=== PATIENT | female | born 1955 | race Caucasian/White ===

== ENCOUNTER 2022-08-04 13:27 | Observation (INO) | payer BC, MEDICARE, SELFPAY ==
[2022-08-04] VITALS (7 sets, daily range): BP systolic 128–185; BP diastolic 78–109; PULSE 77–96; RESP 16–20; TEMP 36.2–36.8; O2SAT 94–100; BMI 21.2
--- NOTE | ~2022-08-04 | MR_ITS ---
EXAMINATION: MR BRAIN WITHOUT CONTRAST CLINICAL INFORMATION: Syncope. COMPARISON: Head CT dated 08/04/2022. TECHNIQUE: Multiplanar, multisequence imaging of the brain was performed without contrast. FINDINGS: No diffusion abnormalities are identified to suggest an acute or subacute infarct. The ventricles are normal in size. No mass effect or midline shift is seen. Mild chronic white matter microangiopathic changes noted. No extra-axial fluid collections are seen. The brainstem and cerebellum are normal. The gradient refocused acquisition is normal. The craniovertebral junction, marrow signal, and midline structures are normal. The major intracranial flow voids at the level of the [place] of [place] are preserved. The dural venous sinus flow voids are maintained. The mastoid air cells are well aerated. There is mild mucosal thickening in the sphenoethmoid sinuses. MR/MR head/brain wo con IMPRESSION: No acute intracranial process. Mild chronic white matter microangiopathy.
--- NOTE | ~2022-08-04 | CT_ITS ---
EXAMINATION: CT HEAD WITHOUT CONTRAST CLINICAL INFORMATION: Feeling unsteady. Leading to the left. COMPARISON: None. TECHNIQUE: Contiguous axial imaging was performed from the skull base to vertex without intravenous administration of contrast. This CT examination was performed using dose optimization techniques as appropriate, variously including the following: *Automated exposure control *Adjustment of mA and/or kV according to patient size (this includes techniques or standardized protocols for targeted exams where dose is matched to indication/reason for exam; i.e. extremities or head) *Use of iterative reconstruction technique DLP: 532 mGy-cm. FINDINGS: There is no intracranial hemorrhage, large infarction, or mass lesion. There is no extra-axial collection. The ventricles are normal in size and configuration without evidence of hydrocephalus. Patchy hypoattenuation is seen within the cerebral white matter, typical of chronic microangiopathy. The visualized paranasal sinuses and mastoid air cells are clear. Dense atheromatous calcifications are seen along the intradural vertebral arteries and at the carotid siphons CT/CT head/brain wo IV con IMPRESSION: No acute intracranial abnormality. Background changes of chronic microangiopathy.
--- NOTE | ~2022-08-04 | XR_ITS ---
EXAMINATION: XR CHEST CLINICAL INFORMATION: Syncope COMPARISON: None available. TECHNIQUE: Frontal view of the chest was obtained. FINDINGS: Bilateral axillary surgical clips. Lungs are clear. No consolidation, pneumothorax, or pleural effusion. Cardiac and mediastinal contours are normal. Pulmonary vascular structures unremarkable. Calcific atherosclerosis is present in the thoracic aorta. No acute osseous findings. Degenerative spondylosis is noted in the thoracic spine. Calcific atherosclerosis is evident in the region of the splenic artery. Mild osteoarthritis is present in the acromioclavicular and glenohumeral joints. XR/XR chest 1V IMPRESSION: No acute pulmonary findings.
--- NOTE | 2022-08-04 13:52 | ECG_ITS ---
Test Reason : syncope Blood Pressure : / mmHG Vent. Rate : 086 BPM Atrial Rate : 086 BPM P-R Int : 160 ms QRS Dur : 076 ms QT Int : 374 ms P-R-T Axes : 063 013 031 degrees QTc Int : 447 ms Normal sinus rhythm Normal ECG No previous ECGs available Referred By: Susie Sears Electronically Signed By:Sean Bailey
--- NOTE | 2022-08-04 13:52 | ED_ITS ---
HPI - Syncope General Chief Complaint: Syncope <DRISS Solis - Last Filed: 08/04/22 13:59> Stated Complaint: Syncope this am <DRISS Solis - Last Filed: 08/04/22 13:59> Time Seen by Provider: 08/04/22 15:02 <DRISS Solis - Last Filed: 08/04/22 13:59> Source: patient <Shannan Brown MD - Last Filed: 08/04/22 16:23> Mode of arrival: ambulatory <Shannan Brown MD - Last Filed: 08/04/22 16:23> History of Present Illness HPI narrative: 67-year-old female who presents with complaints of recent sinus infection that has prompted her to take multiple treatments with [id number] Sudafed containing decongestants and she feels like it has gradually improved, however she states last night she felt unsteady and dizzy with some tiredness and went to bed early. Patient states that her daughter stated that she sounded like she was drunk. Patient states that she woke up this or and felt this hot flushing sensation with significant sweating that she states soaked her pajamas, she felt unsteady on her feet and walked over to the table. At that time, patient states she rested her head backwards, denies falling out of the chair but feels like she may have almost passed out and when she sat upright again felt sweaty and place her head on the table and thereafter felt better. <Shannan Brown MD - Last Filed: 08/04/22 16:23> Related Data Home Medications: Home Medications Medication Instructions Recorded Confirmed atorvastatin 10 mg tablet 10 mg PO DAILY 08/04/22 lifitegrast 5 % eye drops in a 1 drp ophthalmic (eye) BID 08/04/22 dropperette (Xiidra) losartan 100 1 tab PO DAILY 08/04/22 mg-hydrochlorothiazide 25 mg tablet metformin 500 mg tablet 500 mg PO DAILY 08/04/22 <DRISS Solis - Last Filed: 08/04/22 13:59> Allergies/Adverse Reactions: Allergies Allergy/AdvReac Type Severity Reaction Status Date / Time budesonide Allergy Unknown Verified 02/28/19 00:00 ciprofloxacin [Cipro] Allergy Unknown Verified 02/28/19 00:00 desonide Allergy Unknown Verified 02/28/19 00:00 flaxseed Allergy Unknown Verified 02/28/19 00:00 fludrocortisone Allergy Unknown Verified 02/28/19 00:00 halcinonide Allergy Unknown Verified 02/28/19 00:00 hydrocortisone Allergy Unknown Verified 02/28/19 00:00 prednisolone Allergy Unknown Verified 02/28/19 00:00 triamcinolone Allergy Unknown Verified 02/28/19 00:00 wheat [WHEAT] Allergy Unknown ABDOMINAL Unverified 12/28/19 16:25 DISTENTION Benadryl Allergy Unknown Uncoded 02/28/19 00:00 dust mites Allergy Unknown Uncoded 02/28/19 00:00 From BENADRYL Allergy Unknown HIVES Uncoded 12/28/19 16:25 latex Allergy Unknown Uncoded 02/28/19 00:00 mold Allergy Unknown Uncoded 02/28/19 00:00 numerous meds Allergy Unknown Uncoded 02/28/19 00:00 soy Allergy Unknown Uncoded 02/28/19 00:00 <DRISS Solis - Last Filed: 08/04/22 13:59> Review of Systems Review of Systems: Pertinent positives and negatives as stated in HPI <Shannan Brown MD - Last Filed: 08/04/22 16:23> PMFSH Past Medical History Source: nursing notes reviewed <Shannan Brown MD - Last Filed: 08/04/22 16:23> Social History Social History: Social History Advance Directives: No Advance Directives Information Provided: Yes <DRISS Solis - Last Filed: 08/04/22 13:59> Physical Exam Vital Signs: Vital Signs: Last Vital Signs Temp 98.0 F 08/04/22 13:51 Pulse 83 08/04/22 16:05 Resp 17 08/04/22 13:51 BP 156/99 H 08/04/22 16:05 Pulse Ox 96 08/04/22 15:55 O2 Del Method Room Air 08/04/22 15:55 BMI result Body Mass Index 21.2 <DRISS Solis - Last Filed: 08/04/22 13:59> Vital Signs: Last Vital Signs Temp 98.0 F 08/04/22 13:51 Pulse 83 08/04/22 16:05 Resp 17 08/04/22 13:51 BP 156/99 H 08/04/22 16:05 Pulse Ox 96 08/04/22 15:55 O2 Del Method Room Air 08/04/22 15:55 BMI result Body Mass Index 21.2 VITAL SIGNS: Reviewed. GENERAL: Well developed, well nourished, in no acute distress. HEAD: Normocephalic/atraumatic EYES: PERRLA, EOMI intact without pain, no nystagmus/pallor/icterus noted EARS: Ext canals without abnormality, TMs non-bulging and non-erythematous NOSE: Nares patent bilateral OROPHARYNX: no oral lesions noted, posterior pharynx clear and non-erythematous without noted tonsillar enlargement/erythema/exudates NECK: Supple, no adenopathy LUNGS: Normal breath sounds. No adventitious sounds or accessory muscle use. SpO2<98>; CHEST WALL: Patient is noted to have purpuric and tender rash to the anterior chest wall that she states is been evaluated by her support team member. CARDIOVASCULAR: Regular rate and rhythm without noted murmurs, no JVD or lower extremity edema. ABDOMEN: Soft, non-tender, non-distended with bowel sounds. MUSCULOSKELETAL: No tenderness, deformities, or effusions noted on gross inspec tion. EXTREMITIES: No cyanosis, clubbing or edema. SKIN: Inspection of the skin reveals please see above description on anterior chest wall NEUROLOGIC: Alert and oriented x 4. Strength and sensation to light touch were grossly intact x 4, no facial asymmetry, no pronator drift, cranial nerves 2-12 are grossly intact. <Shannan Brown MD - Last Filed: 08/04/22 16:23> Vital Signs: Last Vital Signs Temp 98.0 F 08/04/22 13:51 Pulse 83 08/04/22 16:05 Resp 17 08/04/22 13:51 BP 156/99 H 08/04/22 16:05 Pulse Ox 96 08/04/22 15:55 O2 Del Method Room Air 08/04/22 15:55 BMI result Body Mass Index 21.2 <Ahmet Bernstein MD - Last Filed: 08/04/22 18:15> Course Course Course Narrative: RME: 67yo F c/o feeling unwell yesterday, left work early slept for 4hrs then had syncopal episode this AM around 6:45AM. Denies head trauma. States when called her daughter yesterday sounded drunk on the phone. Admits to feeling shaky/foggy and unsteady on feet. takes ASA 81mg HTNsive 185/109 in triage, admits did take her BP meds this AM EKG, labs, CXR, head CT, CXR, Orthostatics ordered Full HPI, ROS and PE to be performed by primary ED provider. <DRISS Solis - Last Filed: 08/04/22 13:59> Medical Decision Making Medical Decision Making MDM Narrative: 67-year-old female with history and clinical presentation person for most suggestive near-syncope and on review of all investigations in combination with my clinical exam there are no findings to suggest infection, anemia as probable etiologies however there is obvious and significant hyponatremia with a por phyric rash to the anterior chest wall. I reviewed all investigations, additional labs to be evaluated are: ESR, CRP, VBG, serum osmolality as well as urine osmolality. Signed out to Dr Bernstein. <Shannan Brown MD - Last Filed: 08/04/22 16:23> 67-year-old female with history and clinical presentation person for most suggestive near-syncope and on review of all investigations in combination with my clinical exam there are no findings to suggest infection, anemia as probable etiologies however there is obvious and significant hyponatremia with a porphyric rash to the anterior chest wall. I reviewed all investigations, additional labs to be evaluated are: ESR, CRP, VBG, serum osmolality as well as urine osmolality. Signed out to Dr Bernstein. 174: I did assume care of this patient from my colleague, Dr. Shannan Brown. The patient told me that she has had sinus pressure in her maxillary sinuses times several days. She has been taking [id number] medications including Zyrtec, Sudafed maximum strength and Dyslem. The patient states that she has a job where she walks around a lot yesterday she was feeling a little lightheaded at work. Her daughter states she spoke to her yesterday and she sounded conf used. Today, the patient states she walked upper stairs and when she got to the top of the stairs she felt woozy as if she was going to pass out. She felt weak. She states that she became diaphoretic and was drenched in sweat. She sat and her kitchen chair and her 13-year-old grandson was there. The grandson reports that the patient passed out for a couple minutes pain. The patient does not remember this but when she got up from the kitchen tear she again felt lightheaded, woozy and diaphoretic. Patient does have a history of hypertension which is treated with losartan and hydrochlorothiazide, hyperlipidemia, diabetes mellitus, arthritis, eczema, breast cancer. Patient's laboratory revealed a low sodium of 125, she has a low serum osmolality of 298 with a low urine osmolality of 264 and elevated sodium of 41 suggesting that this is probably caused by her diuretics. First high sensitive troponin I was below detectable limits, repeat was ordered for now. Twelve EKG was unremarkable. Chest x-ray was unremarkable pain. CT scan of the brain no acute abnormalities with chronic microangiopathy. Given her diaphoresis with exertion, lightheadedness and syncope, the patient will need to be admitted for further workup. I will discuss the patient's presentation with the covering hospitalist <Ahmet Bernstein MD - Last Filed: 08/04/22 18:15> Differential Diagnosis Please see the discussion above <Shannan Brown MD - Last Filed: 08/04/22 16:23> Consult Healthcare Provider Management of the patient was discussed with: Hospitalist <Ahmet Bernstein MD - Last Filed: 08/04/22 18:15> Lab Data MDM Lab Attestation statement: I reviewed the patient's lab results. <Ahmet Bernstein MD - Last Filed: 08/04/22 18:15> Please see the discussion above <Shannan Brown MD - Last Filed: 08/04/22 16:23> Result Diagrams: 08/04/22 14:17 08/04/22 14:17 <DRISS Solis - Last Filed: 08/04/22 13:59> Labs: Lab Results 08/04/22 08/04/22 08/04/22 Range/Units 14:17 14:17 14:17 WBC 8.0 (4.8-10.8) X10*3/uL RBC 4.47 (4.20-5.50) X10*6/uL Hgb 14.1 (12.0-16.0) g/dl Hct 38.8 (37.0-47.0) % MCV 86.8 (80.0-98.0) fL MCH 31.5 (27.0-33.0) pg MCHC 36.3 H (31.0-35.0) g/dl RDW 11.7 (11.0-16.0) % Plt Count 314 (160-400) X10*3/uL MPV 8.8 L (9.4-12.3) fL Immature Gran % (Auto) 0.4 (0.0-0.4) % Neut % (Auto) 76.7 H (45-73) % Lymph % (Auto) 16.7 L (20-40) % [place] % (Auto) 5.6 (2-11) % Eos % (Auto) 0.4 (0-4) % Baso % (Auto) 0.2 (0-2) % Lymph # (Auto) 1.3 (1.2-4.9) X10*3/uL [place] # (Auto) 0.5 (0.1-1.2) X10*3/uL Eos # (Auto) 0.0 (0.0-0.4) X10*3/uL Baso # (Auto) 0.0 (0.0-0.2) X10*3/uL Abs Immat Gran (auto) 0.03 (0.00-0.03) X10*3/uL Absolute Neuts (auto) 6.2 (2.0-8.3) x10*3/uL Absolute Nucleated RBC 0.000 (0.0-0.012) X10*3/uL Nucleated RBC % (auto) 0.0 (0.0-0.2) /100WBC PT (10.0-13.1) SEC INR (0.9-1.1) Sodium 125 L (135-145) mmol/L Potassium 3.7 (3.3-5.1) mmol/L Chloride 88 L (96-108) mmol/L Carbon Dioxide 26 (22-29) mmol/L Anion Gap 15 (12-20) BUN 14 (9-16) mg/dL Creatinine 0.71 (0.5-1.4) mg/dL Estim Creat Clear Calc 62.5 Estimated GFR > 60 Random Glucose 100 (60-115) mg/dL Osmolality (281-305) mosm/kg Calcium 9.3 (8.4-10.2) mg/dL Magnesium 1.9 (1.6-2.6) mg/dL Total Bilirubin 0.7 (0.0-1.0) mg/dL Direct Bilirubin 0.2 (0.0-0.5) mg/dL AST 24 (5-31) U/L ALT 20 (0-31) U/L Alkaline Phosphatase 72 (39-117) U/L Troponin I High Sens < 2.7 (<3.5-17.0) ng/L C-Reactive Protein < 0.10 (< or = 0.50) mg/dL Total Protein 7.3 (6.5-8.0) g/dL Albumin 4.6 (3.5-5.0) g/dL Urine Color Urine Appearance Urine pH (5.0-9.0) Ur Specific [place] (1.005-1.025) Urine Protein (Neg-Trace) mg/dL Urine Glucose (UA) (Negative) mg/dL Urine Ketones (Negative) mg/dL Urine Blood (Negative) Urine Nitrite (Negative) Ur Leukocyte Esterase (Negative) Urine RBC (0-2) /HPF Urine WBC (0-5) /HPF Ur Squamous Epith Cells (0-2) /HPF Urine Bacteria (None Seen) Hyaline Casts (0-2) /LPF Urine Osmolality (373-1093) mosm/kg Ur Random Sodium mmol/L COVID-19 (JENNY) (Negative) COVID-19 Clin Com Influenza Type A (EMILY) (Negative) Influenza Type B (EMILY) (Negative) Influenza A & B Note 08/04/22 08/04/22 08/04/22 Range/Units 14:17 14:17 14:17 WBC (4.8-10.8) X10*3/uL RBC (4.20-5.50) X10*6/uL Hgb (12.0-16.0) g/dl Hct (37.0-47.0) % MCV (80.0-98.0) fL MCH (27.0-33.0) pg MCHC (31.0-35.0) g/dl RDW (11.0-16.0) % Plt Count (160-400) X10*3/uL MPV (9.4-12.3) fL Immature Gran % (Auto) (0.0-0.4) % Neut % (Auto) (45-73) % Lymph % (Auto) (20-40) % [place] % (Auto) (2-11) % Eos % (Auto) (0-4) % Baso % (Auto) (0-2) % Lymph # (Auto) (1.2-4.9) X10*3/uL [place] # (Auto) (0.1-1.2) X10*3/uL Eos # (Auto) (0.0-0.4) X10*3/uL Baso # (Auto) (0.0-0.2) X10*3/uL Abs Immat Gran (auto) (0.00-0.03) X10*3/uL Absolute Neuts (auto) (2.0-8.3) x10*3/uL Absolute Nucleated RBC (0.0-0.012) X10*3/uL Nucleated RBC % (auto) (0.0-0.2) /100WBC PT 11.1 (10.0-13.1) SEC INR 1.0 (0.9-1.1) Sodium (135-145) mmol/L Potassium (3.3-5.1) mmol/L Chloride (96-108) mmol/L Carbon Dioxide (22-29) mmol/L Anion Gap (12-20) BUN (9-16) mg/dL Creatinine (0.5-1.4) mg/dL Estim Creat Clear Calc Estimated GFR Random Glucose (60-115) mg/dL Osmolality (281-305) mosm/kg Calcium (8.4-10.2) mg/dL Magnesium (1.6-2.6) mg/dL Total Bilirubin (0.0-1.0) mg/dL Direct Bilirubin (0.0-0.5) mg/dL AST (5-31) U/L ALT (0-31) U/L Alkaline Phosphatase (39-117) U/L Troponin I High Sens (<3.5-17.0) ng/L C-Reactive Protein (< or = 0.50) mg/dL Total Protein (6.5-8.0) g/dL Albumin (3.5-5.0) g/dL Urine Color Urine Appearance Urine pH (5.0-9.0) Ur Specific [place] (1.005-1.025) Urine Protein (Neg-Trace) mg/dL Urine Glucose (UA) (Negative) mg/dL Urine Ketones (Negative) mg/dL Urine Blood (Negative) Urine Nitrite (Negative) Ur Leukocyte Esterase (Negative) Urine RBC (0-2) /HPF Urine WBC (0-5) /HPF Ur Squamous Epith Cells (0-2) /HPF Urine Bacteria (None Seen) Hyaline Casts (0-2) /LPF Urine Osmolality (373-1093) mosm/kg Ur Random Sodium mmol/L COVID-19 (JENNY) Negative (Negative) COVID-19 Clin Com See Note Influenza Type A (EMILY) Negative (Negative) Influenza Type B (EMILY) Negative (Negative) Influenza A & B Note See Note 08/04/22 08/04/22 08/04/22 Range/Units 14:17 15:51 15:51 WBC (4.8-10.8) X10*3/uL RBC (4.20-5.50) X10*6/uL Hgb (12.0-16.0) g/dl Hct (37.0-47.0) % MCV (80.0-98.0) fL MCH (27.0-33.0) pg MCHC (31.0-35.0) g/dl RDW (11.0-16.0) % Plt Count (160-400) X10*3/uL MPV (9.4-12.3) fL Immature Gran % (Auto) (0.0-0.4) % Neut % (Auto) (45-73) % Lymph % (Auto) (20-40) % [place] % (Auto) (2-11) % Eos % (Auto) (0-4) % Baso % (Auto) (0-2) % Lymph # (Auto) (1.2-4.9) X10*3/uL [place] # (Auto) (0.1-1.2) X10*3/uL Eos # (Auto) (0.0-0.4) X10*3/uL Baso # (Auto) (0.0-0.2) X10*3/uL Abs Immat Gran (auto) (0.00-0.03) X10*3/uL Absolute Neuts (auto) (2.0-8.3) x10*3/uL Absolute Nucleated RBC (0.0-0.012) X10*3/uL Nucleated RBC % (auto) (0.0-0.2) /100WBC PT (10.0-13.1) SEC INR (0.9-1.1) Sodium (135-145) mmol/L Potassium (3.3-5.1) mmol/L Chloride (96-108) mmol/L Carbon Dioxide (22-29) mmol/L Anion Gap (12-20) BUN (9-16) mg/dL Creatinine (0.5-1.4) mg/dL Estim Creat Clear Calc Estimated GFR Random Glucose (60-115) mg/dL Osmolality 264 L (281-305) mosm/kg Calcium (8.4-10.2) mg/dL Magnesium (1.6-2.6) mg/dL Total Bilirubin (0.0-1.0) mg/dL Direct Bilirubin (0.0-0.5) mg/dL AST (5-31) U/L ALT (0-31) U/L Alkaline Phosphatase (39-117) U/L Troponin I High Sens (<3.5-17.0) ng/L C-Reactive Protein (< or = 0.50) mg/dL Total Protein (6.5-8.0) g/dL Albumin (3.5-5.0) g/dL Urine Color Yellow Urine Appearance Clear Urine pH 7.0 (5.0-9.0) Ur Specific [place] 1.010 (1.005-1.025) Urine Protein 30 (1+) H (Neg-Trace) mg/dL Urine Glucose (UA) Negative (Negative) mg/dL Urine Ketones Negative (Negative) mg/dL Urine Blood Negative (Negative) Urine Nitrite Negative (Negative) Ur Leukocyte Esterase Negative (Negative) Urine RBC 3-5 H (0-2) /HPF Urine WBC 0-5 (0-5) /HPF Ur Squamous Epith Cells 0-2 (0-2) /HPF Urine Bacteria None Seen (None Seen) Hyaline Casts 0-2 (0-2) /LPF Urine Osmolality 298 L (373-1093) mosm/kg Ur Random Sodium mmol/L COVID-19 (JENNY) (Negative) COVID-19 Clin Com Influenza Type A (EMILY) (Negative) Influenza Type B (EMILY) (Negative) Influenza A & B Note 08/04/22 Range/Units 15:51 WBC (4.8-10.8) X10*3/uL RBC (4.20-5.50) X10*6/uL Hgb (12.0-16.0) g/dl Hct (37.0-47.0) % MCV (80.0-98.0) fL MCH (27.0-33.0) pg MCHC (31.0-35.0) g/dl RDW (11.0-16.0) % Plt Count (160-400) X10*3/uL MPV (9.4-12.3) fL Immature Gran % (Auto) (0.0-0.4) % Neut % (Auto) (45-73) % Lymph % (Auto) (20-40) % [place] % (Auto) (2-11) % Eos % (Auto) (0-4) % Baso % (Auto) (0-2) % Lymph # (Auto) (1.2-4.9) X10*3/uL [place] # (Auto) (0.1-1.2) X10*3/uL Eos # (Auto) (0.0-0.4) X10*3/uL Baso # (Auto) (0.0-0.2) X10*3/uL Abs Immat Gran (auto) (0.00-0.03) X10*3/uL Absolute Neuts (auto) (2.0-8.3) x10*3/uL Absolute Nucleated RBC (0.0-0.012) X10*3/uL Nucleated RBC % (auto) (0.0-0.2) /100WBC PT (10.0-13.1) SEC INR (0.9-1.1) Sodium (135-145) mmol/L Potassium (3.3-5.1) mmol/L Chloride (96-108) mmol/L Carbon Dioxide (22-29) mmol/L Anion Gap (12-20) BUN (9-16) mg/dL Creatinine (0.5-1.4) mg/dL Estim Creat Clear Calc Estimated GFR Random Glucose (60-115) mg/dL Osmolality (281-305) mosm/kg Calcium (8.4-10.2) mg/dL Magnesium (1.6-2.6) mg/dL Total Bilirubin (0.0-1.0) mg/dL Direct Bilirubin (0.0-0.5) mg/dL AST (5-31) U/L ALT (0-31) U/L Alkaline Phosphatase (39-117) U/L Troponin I High Sens (<3.5-17.0) ng/L C-Reactive Protein (< or = 0.50) mg/dL Total Protein (6.5-8.0) g/dL Albumin (3.5-5.0) g/dL Urine Color Urine Appearance Urine pH (5.0-9.0) Ur Specific [place] (1.005-1.025) Urine Protein (Neg-Trace) mg/dL Urine Glucose (UA) (Negative) mg/dL Urine Ketones (Negative) mg/dL Urine Blood (Negative) Urine Nitrite (Negative) Ur Leukocyte Esterase (Negative) Urine RBC (0-2) /HPF Urine WBC (0-5) /HPF Ur Squamous Epith Cells (0-2) /HPF Urine Bacteria (None Seen) Hyaline Casts (0-2) /LPF Urine Osmolality (373-1093) mosm/kg Ur Random Sodium 41.0 mmol/L COVID-19 (JENNY) (Negative) COVID-19 Clin Com Influenza Type A (EMILY) (Negative) Influenza Type B (EMILY) (Negative) Influenza A & B Note <DRISS Solis - Last Filed: 08/04/22 13:59> Lab Results 08/04/22 08/04/22 08/04/22 Range/Units 14:17 14:17 14:17 WBC 8.0 (4.8-10.8) X10*3/uL RBC 4.47 (4.20-5.50) X10*6/uL Hgb 14.1 (12.0-16.0) g/dl Hct 38.8 (37.0-47.0) % MCV 86.8 (80.0-98.0) fL MCH 31.5 (27.0-33.0) pg MCHC 36.3 H (31.0-35.0) g/dl RDW 11.7 (11.0-16.0) % Plt Count 314 (160-400) X10*3/uL MPV 8.8 L (9.4-12.3) fL Immature Gran % (Auto) 0.4 (0.0-0.4) % Neut % (Auto) 76.7 H (45-73) % Lymph % (Auto) 16.7 L (20-40) % [place] % (Auto) 5.6 (2-11) % Eos % (Auto) 0.4 (0-4) % Baso % (Auto) 0.2 (0-2) % Lymph # (Auto) 1.3 (1.2-4.9) X10*3/uL [place] # (Auto) 0.5 (0.1-1.2) X10*3/uL Eos # (Auto) 0.0 (0.0-0.4) X10*3/uL Baso # (Auto) 0.0 (0.0-0.2) X10*3/uL Abs Immat Gran (auto) 0.03 (0.00-0.03) X10*3/uL Absolute Neuts (auto) 6.2 (2.0-8.3) x10*3/uL Absolute Nucleated RBC 0.000 (0.0-0.012) X10*3/uL Nucleated RBC % (auto) 0.0 (0.0-0.2) /100WBC PT (10.0-13.1) SEC INR (0.9-1.1) Sodium 125 L (135-145) mmol/L Potassium 3.7 (3.3-5.1) mmol/L Chloride 88 L (96-108) mmol/L Carbon Dioxide 26 (22-29) mmol/L Anion Gap 15 (12-20) BUN 14 (9-16) mg/dL Creatinine 0.71 (0.5-1.4) mg/dL Estim Creat Clear Calc 62.5 Estimated GFR > 60 Random Glucose 100 (60-115) mg/dL Osmolality (281-305) mosm/kg Calcium 9.3 (8.4-10.2) mg/dL Magnesium 1.9 (1.6-2.6) mg/dL Total Bilirubin 0.7 (0.0-1.0) mg/dL Direct Bilirubin 0.2 (0.0-0.5) mg/dL AST 24 (5-31) U/L ALT 20 (0-31) U/L Alkaline Phosphatase 72 (39-117) U/L Troponin I High Sens < 2.7 (<3.5-17.0) ng/L C-Reactive Protein < 0.10 (< or = 0.50) mg/dL Total Protein 7.3 (6.5-8.0) g/dL Albumin 4.6 (3.5-5.0) g/dL Urine Color Urine Appearance Urine pH (5.0-9.0) Ur Specific [place] (1.005-1.025) Urine Protein (Neg-Trace) mg/dL Urine Glucose (UA) (Negative) mg/dL Urine Ketones (Negative) mg/dL Urine Blood (Negative) Urine Nitrite (Negative) Ur Leukocyte Esterase (Negative) Urine RBC (0-2) /HPF Urine WBC (0-5) /HPF Ur Squamous Epith Cells (0-2) /HPF Urine Bacteria (None Seen) Hyaline Casts (0-2) /LPF Urine Osmolality (373-1093) mosm/kg Ur Random Sodium mmol/L COVID-19 (JENNY) (Negative) COVID-19 Clin Com Influenza Type A (EMILY) (Negative) Influenza Type B (EMILY) (Negative) Influenza A & B Note 08/04/22 08/04/22 08/04/22 Range/Units 14:17 14:17 14:17 WBC (4.8-10.8) X10*3/uL RBC (4.20-5.50) X10*6/uL Hgb (12.0-16.0) g/dl Hct (37.0-47.0) % MCV (80.0-98.0) fL MCH (27.0-33.0) pg MCHC (31.0-35.0) g/dl RDW (11.0-16.0) % Plt Count (160-400) X10*3/uL MPV (9.4-12.3) fL Immature Gran % (Auto) (0.0-0.4) % Neut % (Auto) (45-73) % Lymph % (Auto) (20-40) % [place] % (Auto) (2-11) % Eos % (Auto) (0-4) % Baso % (Auto) (0-2) % Lymph # (Auto) (1.2-4.9) X10*3/uL [place] # (Auto) (0.1-1.2) X10*3/uL Eos # (Auto) (0.0-0.4) X10*3/uL Baso # (Auto) (0.0-0.2) X10*3/uL Abs Immat Gran (auto) (0.00-0.03) X10*3/uL Absolute Neuts (auto) (2.0-8.3) x10*3/uL Absolute Nucleated RBC (0.0-0.012) X10*3/uL Nucleated RBC % (auto) (0.0-0.2) /100WBC PT 11.1 (10.0-13.1) SEC INR 1.0 (0.9-1.1) Sodium (135-145) mmol/L Potassium (3.3-5.1) mmol/L Chloride (96-108) mmol/L Carbon Dioxide (22-29) mmol/L Anion Gap (12-20) BUN (9-16) mg/dL Creatinine (0.5-1.4) mg/dL Estim Creat Clear Calc Estimated GFR Random Glucose (60-115) mg/dL Osmolality (281-305) mosm/kg Calcium (8.4-10.2) mg/dL Magnesium (1.6-2.6) mg/dL Total Bilirubin (0.0-1.0) mg/dL Direct Bilirubin (0.0-0.5) mg/dL AST (5-31) U/L ALT (0-31) U/L Alkaline Phosphatase (39-117) U/L Troponin I High Sens (<3.5-17.0) ng/L C-Reactive Protein (< or = 0.50) mg/dL Total Protein (6.5-8.0) g/dL Albumin (3.5-5.0) g/dL Urine Color Urine Appearance Urine pH (5.0-9.0) Ur Specific [place] (1.005-1.025) Urine Protein (Neg-Trace) mg/dL Urine Glucose (UA) (Negative) mg/dL Urine Ketones (Negative) mg/dL Urine Blood (Negative) Urine Nitrite (Negative) Ur Leukocyte Esterase (Negative) Urine RBC (0-2) /HPF Urine WBC (0-5) /HPF Ur Squamous Epith Cells (0-2) /HPF Urine Bacteria (None Seen) Hyaline Casts (0-2) /LPF Urine Osmolality (373-1093) mosm/kg Ur Random Sodium mmol/L COVID-19 (JENNY) Negative (Negative) COVID-19 Clin Com See Note Influenza Type A (EMILY) Negative (Negative) Influenza Type B (EMILY) Negative (Negative) Influenza A & B Note See Note 08/04/22 08/04/22 08/04/22 Range/Units 14:17 15:51 15:51 WBC (4.8-10.8) X10*3/uL RBC (4.20-5.50) X10*6/uL Hgb (12.0-16.0) g/dl Hct (37.0-47.0) % MCV (80.0-98.0) fL MCH (27.0-33.0) pg MCHC (31.0-35.0) g/dl RDW (11.0-16.0) % Plt Count (160-400) X10*3/uL MPV (9.4-12.3) fL Immature Gran % (Auto) (0.0-0.4) % Neut % (Auto) (45-73) % Lymph % (Auto) (20-40) % [place] % (Auto) (2-11) % Eos % (Auto) (0-4) % Baso % (Auto) (0-2) % Lymph # (Auto) (1.2-4.9) X10*3/uL [place] # (Auto) (0.1-1.2) X10*3/uL Eos # (Auto) (0.0-0.4) X10*3/uL Baso # (Auto) (0.0-0.2) X10*3/uL Abs Immat Gran (auto) (0.00-0.03) X10*3/uL Absolute Neuts (auto) (2.0-8.3) x10*3/uL Absolute Nucleated RBC (0.0-0.012) X10*3/uL Nucleated RBC % (auto) (0.0-0.2) /100WBC PT (10.0-13.1) SEC INR (0.9-1.1) Sodium (135-145) mmol/L Potassium (3.3-5.1) mmol/L Chloride (96-108) mmol/L Carbon Dioxide (22-29) mmol/L Anion Gap (12-20) BUN (9-16) mg/dL Creatinine (0.5-1.4) mg/dL Estim Creat Clear Calc Estimated GFR Random Glucose (60-115) mg/dL Osmolality 264 L (281-305) mosm/kg Calcium (8.4-10.2) mg/dL Magnesium (1.6-2.6) mg/dL Total Bilirubin (0.0-1.0) mg/dL Direct Bilirubin (0.0-0.5) mg/dL AST (5-31) U/L ALT (0-31) U/L Alkaline Phosphatase (39-117) U/L Troponin I High Sens (<3.5-17.0) ng/L C-Reactive Protein (< or = 0.50) mg/dL Total Protein (6.5-8.0) g/dL Albumin (3.5-5.0) g/dL Urine Color Yellow Urine Appearance Clear Urine pH 7.0 (5.0-9.0) Ur Specific [place] 1.010 (1.005-1.025) Urine Protein 30 (1+) H (Neg-Trace) mg/dL Urine Glucose (UA) Negative (Negative) mg/dL Urine Ketones Negative (Negative) mg/dL Urine Blood Negative (Negative) Urine Nitrite Negative (Negative) Ur Leukocyte Esterase Negative (Negative) Urine RBC 3-5 H (0-2) /HPF Urine WBC 0-5 (0-5) /HPF Ur Squamous Epith Cells 0-2 (0-2) /HPF Urine Bacteria None Seen (None Seen) Hyaline Casts 0-2 (0-2) /LPF Urine Osmolality 298 L (373-1093) mosm/kg Ur Random Sodium mmol/L COVID-19 (JENNY) (Negative) COVID-19 Clin Com Influenza Type A (EMILY) (Negative) Influenza Type B (EMILY) (Negative) Influenza A & B Note 08/04/22 Range/Units 15:51 WBC (4.8-10.8) X10*3/uL RBC (4.20-5.50) X10*6/uL Hgb (12.0-16.0) g/dl Hct (37.0-47.0) % MCV (80.0-98.0) fL MCH (27.0-33.0) pg MCHC (31.0-35.0) g/dl RDW (11.0-16.0) % Plt Count (160-400) X10*3/uL MPV (9.4-12.3) fL Immature Gran % (Auto) (0.0-0.4) % Neut % (Auto) (45-73) % Lymph % (Auto) (20-40) % [place] % (Auto) (2-11) % Eos % (Auto) (0-4) % Baso % (Auto) (0-2) % Lymph # (Auto) (1.2-4.9) X10*3/uL [place] # (Auto) (0.1-1.2) X10*3/uL Eos # (Auto) (0.0-0.4) X10*3/uL Baso # (Auto) (0.0-0.2) X10*3/uL Abs Immat Gran (auto) (0.00-0.03) X10*3/uL Absolute Neuts (auto) (2.0-8.3) x10*3/uL Absolute Nucleated RBC (0.0-0.012) X10*3/uL Nucleated RBC % (auto) (0.0-0.2) /100WBC PT (10.0-13.1) SEC INR (0.9-1.1) Sodium (135-145) mmol/L Potassium (3.3-5.1) mmol/L Chloride (96-108) mmol/L Carbon Dioxide (22-29) mmol/L Anion Gap (12-20) BUN (9-16) mg/dL Creatinine (0.5-1.4) mg/dL Estim Creat Clear Calc Estimated GFR Random Glucose (60-115) mg/dL Osmolality (281-305) mosm/kg Calcium (8.4-10.2) mg/dL Magnesium (1.6-2.6) mg/dL Total Bilirubin (0.0-1.0) mg/dL Direct Bilirubin (0.0-0.5) mg/dL AST (5-31) U/L ALT (0-31) U/L Alkaline Phosphatase (39-117) U/L Troponin I High Sens (<3.5-17.0) ng/L C-Reactive Protein (< or = 0.50) mg/dL Total Protein (6.5-8.0) g/dL Albumin (3.5-5.0) g/dL Urine Color Urine Appearance Urine pH (5.0-9.0) Ur Specific [place] (1.005-1.025) Urine Protein (Neg-Trace) mg/dL Urine Glucose (UA) (Negative) mg/dL Urine Ketones (Negative) mg/dL Urine Blood (Negative) Urine Nitrite (Negative) Ur Leukocyte Esterase (Negative) Urine RBC (0-2) /HPF Urine WBC (0-5) /HPF Ur Squamous Epith Cells (0-2) /HPF Urine Bacteria (None Seen) Hyaline Casts (0-2) /LPF Urine Osmolality (373-1093) mosm/kg Ur Random Sodium 41.0 mmol/L COVID-19 (JENNY) (Negative) COVID-19 Clin Com Influenza Type A (EMILY) (Negative) Influenza Type B (EMILY) (Negative) Influenza A & B Note <Shannan Brown MD - Last Filed: 08/04/22 16:23> Lab Results 08/04/22 08/04/22 08/04/22 Range/Units 14:17 14:17 14:17 WBC 8.0 (4.8-10.8) X10*3/uL RBC 4.47 (4.20-5.50) X10*6/uL Hgb 14.1 (12.0-16.0) g/dl Hct 38.8 (37.0-47.0) % MCV 86.8 (80.0-98.0) fL MCH 31.5 (27.0-33.0) pg MCHC 36.3 H (31.0-35.0) g/dl RDW 11.7 (11.0-16.0) % Plt Count 314 (160-400) X10*3/uL MPV 8.8 L (9.4-12.3) fL Immature Gran % (Auto) 0.4 (0.0-0.4) % Neut % (Auto) 76.7 H (45-73) % Lymph % (Auto) 16.7 L (20-40) % [place] % (Auto) 5.6 (2-11) % Eos % (Auto) 0.4 (0-4) % Baso % (Auto) 0.2 (0-2) % Lymph # (Auto) 1.3 (1.2-4.9) X10*3/uL [place] # (Auto) 0.5 (0.1-1.2) X10*3/uL Eos # (Auto) 0.0 (0.0-0.4) X10*3/uL Baso # (Auto) 0.0 (0.0-0.2) X10*3/uL Abs Immat Gran (auto) 0.03 (0.00-0.03) X10*3/uL Absolute Neuts (auto) 6.2 (2.0-8.3) x10*3/uL Absolute Nucleated RBC 0.000 (0.0-0.012) X10*3/uL Nucleated RBC % (auto) 0.0 (0.0-0.2) /100WBC PT (10.0-13.1) SEC INR (0.9-1.1) Sodium 125 L (135-145) mmol/L Potassium 3.7 (3.3-5.1) mmol/L Chloride 88 L (96-108) mmol/L Carbon Dioxide 26 (22-29) mmol/L Anion Gap 15 (12-20) BUN 14 (9-16) mg/dL Creatinine 0.71 (0.5-1.4) mg/dL Estim Creat Clear Calc 62.5 Estimated GFR > 60 Random Glucose 100 (60-115) mg/dL Osmolality (281-305) mosm/kg Calcium 9.3 (8.4-10.2) mg/dL Magnesium 1.9 (1.6-2.6) mg/dL Total Bilirubin 0.7 (0.0-1.0) mg/dL Direct Bilirubin 0.2 (0.0-0.5) mg/dL AST 24 (5-31) U/L ALT 20 (0-31) U/L Alkaline Phosphatase 72 (39-117) U/L Troponin I High Sens < 2.7 (<3.5-17.0) ng/L C-Reactive Protein < 0.10 (< or = 0.50) mg/dL Total Protein 7.3 (6.5-8.0) g/dL Albumin 4.6 (3.5-5.0) g/dL Urine Color Urine Appearance Urine pH (5.0-9.0) Ur Specific [place] (1.005-1.025) Urine Protein (Neg-Trace) mg/dL Urine Glucose (UA) (Negative) mg/dL Urine Ketones (Negative) mg/dL Urine Blood (Negative) Urine Nitrite (Negative) Ur Leukocyte Esterase (Negative) Urine RBC (0-2) /HPF Urine WBC (0-5) /HPF Ur Squamous Epith Cells (0-2) /HPF Urine Bacteria (None Seen) Hyaline Casts (0-2) /LPF Urine Osmolality (373-1093) mosm/kg Ur Random Sodium mmol/L COVID-19 (JENNY) (Negative) COVID-19 Clin Com Influenza Type A (EMILY) (Negative) Influenza Type B (EMILY) (Negative) Influenza A & B Note 08/04/22 08/04/22 08/04/22 Range/Units 14:17 14:17 14:17 WBC (4.8-10.8) X10*3/uL RBC (4.20-5.50) X10*6/uL Hgb (12.0-16.0) g/dl Hct (37.0-47.0) % MCV (80.0-98.0) fL MCH (27.0-33.0) pg MCHC (31.0-35.0) g/dl RDW (11.0-16.0) % Plt Count (160-400) X10*3/uL MPV (9.4-12.3) fL Immature Gran % (Auto) (0.0-0.4) % Neut % (Auto) (45-73) % Lymph % (Auto) (20-40) % [place] % (Auto) (2-11) % Eos % (Auto) (0-4) % Baso % (Auto) (0-2) % Lymph # (Auto) (1.2-4.9) X10*3/uL [place] # (Auto) (0.1-1.2) X10*3/uL Eos # (Auto) (0.0-0.4) X10*3/uL Baso # (Auto) (0.0-0.2) X10*3/uL Abs Immat Gran (auto) (0.00-0.03) X10*3/uL Absolute Neuts (auto) (2.0-8.3) x10*3/uL Absolute Nucleated RBC (0.0-0.012) X10*3/uL Nucleated RBC % (auto) (0.0-0.2) /100WBC PT 11.1 (10.0-13.1) SEC INR 1.0 (0.9-1.1) Sodium (135-145) mmol/L Potassium (3.3-5.1) mmol/L Chloride (96-108) mmol/L Carbon Dioxide (22-29) mmol/L Anion Gap (12-20) BUN (9-16) mg/dL Creatinine (0.5-1.4) mg/dL Estim Creat Clear Calc Estimated GFR Random Glucose (60-115) mg/dL Osmolality (281-305) mosm/kg Calcium (8.4-10.2) mg/dL Magnesium (1.6-2.6) mg/dL Total Bilirubin (0.0-1.0) mg/dL Direct Bilirubin (0.0-0.5) mg/dL AST (5-31) U/L ALT (0-31) U/L Alkaline Phosphatase (39-117) U/L Troponin I High Sens (<3.5-17.0) ng/L C-Reactive Protein (< or = 0.50) mg/dL Total Protein (6.5-8.0) g/dL Albumin (3.5-5.0) g/dL Urine Color Urine Appearance Urine pH (5.0-9.0) Ur Specific [place] (1.005-1.025) Urine Protein (Neg-Trace) mg/dL Urine Glucose (UA) (Negative) mg/dL Urine Ketones (Negative) mg/dL Urine Blood (Negative) Urine Nitrite (Negative) Ur Leukocyte Esterase (Negative) Urine RBC (0-2) /HPF Urine WBC (0-5) /HPF Ur Squamous Epith Cells (0-2) /HPF Urine Bacteria (None Seen) Hyaline Casts (0-2) /LPF Urine Osmolality (373-1093) mosm/kg Ur Random Sodium mmol/L COVID-19 (JENNY) Negative (Negative) COVID-19 Clin Com See Note Influenza Type A (EMILY) Negative (Negative) Influenza Type B (EMILY) Negative (Negative) Influenza A & B Note See Note 08/04/22 08/04/22 08/04/22 Range/Units 14:17 15:51 15:51 WBC (4.8-10.8) X10*3/uL RBC (4.20-5.50) X10*6/uL Hgb (12.0-16.0) g/dl Hct (37.0-47.0) % MCV (80.0-98.0) fL MCH (27.0-33.0) pg MCHC (31.0-35.0) g/dl RDW (11.0-16.0) % Plt Count (160-400) X10*3/uL MPV (9.4-12.3) fL Immature Gran % (Auto) (0.0-0.4) % Neut % (Auto) (45-73) % Lymph % (Auto) (20-40) % [place] % (Auto) (2-11) % Eos % (Auto) (0-4) % Baso % (Auto) (0-2) % Lymph # (Auto) (1.2-4.9) X10*3/uL [place] # (Auto) (0.1-1.2) X10*3/uL Eos # (Auto) (0.0-0.4) X10*3/uL Baso # (Auto) (0.0-0.2) X10*3/uL Abs Immat Gran (auto) (0.00-0.03) X10*3/uL Absolute Neuts (auto) (2.0-8.3) x10*3/uL Absolute Nucleated RBC (0.0-0.012) X10*3/uL Nucleated RBC % (auto) (0.0-0.2) /100WBC PT (10.0-13.1) SEC INR (0.9-1.1) Sodium (135-145) mmol/L Potassium (3.3-5.1) mmol/L Chloride (96-108) mmol/L Carbon Dioxide (22-29) mmol/L Anion Gap (12-20) BUN (9-16) mg/dL Creatinine (0.5-1.4) mg/dL Estim Creat Clear Calc Estimated GFR Random Glucose (60-115) mg/dL Osmolality 264 L (281-305) mosm/kg Calcium (8.4-10.2) mg/dL Magnesium (1.6-2.6) mg/dL Total Bilirubin (0.0-1.0) mg/dL Direct Bilirubin (0.0-0.5) mg/dL AST (5-31) U/L ALT (0-31) U/L Alkaline Phosphatase (39-117) U/L Troponin I High Sens (<3.5-17.0) ng/L C-Reactive Protein (< or = 0.50) mg/dL Total Protein (6.5-8.0) g/dL Albumin (3.5-5.0) g/dL Urine Color Yellow Urine Appearance Clear Urine pH 7.0 (5.0-9.0) Ur Specific [place] 1.010 (1.005-1.025) Urine Protein 30 (1+) H (Neg-Trace) mg/dL Urine Glucose (UA) Negative (Negative) mg/dL Urine Ketones Negative (Negative) mg/dL Urine Blood Negative (Negative) Urine Nitrite Negative (Negative) Ur Leukocyte Esterase Negative (Negative) Urine RBC 3-5 H (0-2) /HPF Urine WBC 0-5 (0-5) /HPF Ur Squamous Epith Cells 0-2 (0-2) /HPF Urine Bacteria None Seen (None Seen) Hyaline Casts 0-2 (0-2) /LPF Urine Osmolality 298 L (373-1093) mosm/kg Ur Random Sodium mmol/L COVID-19 (JENNY) (Negative) COVID-19 Clin Com Influenza Type A (EMILY) (Negative) Influenza Type B (EMILY) (Negative) Influenza A & B Note 08/04/22 Range/Units 15:51 WBC (4.8-10.8) X10*3/uL RBC (4.20-5.50) X10*6/uL Hgb (12.0-16.0) g/dl Hct (37.0-47.0) % MCV (80.0-98.0) fL MCH (27.0-33.0) pg MCHC (31.0-35.0) g/dl RDW (11.0-16.0) % Plt Count (160-400) X10*3/uL MPV (9.4-12.3) fL Immature Gran % (Auto) (0.0-0.4) % Neut % (Auto) (45-73) % Lymph % (Auto) (20-40) % [place] % (Auto) (2-11) % Eos % (Auto) (0-4) % Baso % (Auto) (0-2) % Lymph # (Auto) (1.2-4.9) X10*3/uL [place] # (Auto) (0.1-1.2) X10*3/uL Eos # (Auto) (0.0-0.4) X10*3/uL Baso # (Auto) (0.0-0.2) X10*3/uL Abs Immat Gran (auto) (0.00-0.03) X10*3/uL Absolute Neuts (auto) (2.0-8.3) x10*3/uL Absolute Nucleated RBC (0.0-0.012) X10*3/uL Nucleated RBC % (auto) (0.0-0.2) /100WBC PT (10.0-13.1) SEC INR (0.9-1.1) Sodium (135-145) mmol/L Potassium (3.3-5.1) mmol/L Chloride (96-108) mmol/L Carbon Dioxide (22-29) mmol/L Anion Gap (12-20) BUN (9-16) mg/dL Creatinine (0.5-1.4) mg/dL Estim Creat Clear Calc Estimated GFR Random Glucose (60-115) mg/dL Osmolality (281-305) mosm/kg Calcium (8.4-10.2) mg/dL Magnesium (1.6-2.6) mg/dL Total Bilirubin (0.0-1.0) mg/dL Direct Bilirubin (0.0-0.5) mg/dL AST (5-31) U/L ALT (0-31) U/L Alkaline Phosphatase (39-117) U/L Troponin I High Sens (<3.5-17.0) ng/L C-Reactive Protein (< or = 0.50) mg/dL Total Protein (6.5-8.0) g/dL Albumin (3.5-5.0) g/dL Urine Color Urine Appearance Urine pH (5.0-9.0) Ur Specific [place] (1.005-1.025) Urine Protein (Neg-Trace) mg/dL Urine Glucose (UA) (Negative) mg/dL Urine Ketones (Negative) mg/dL Urine Blood (Negative) Urine Nitrite (Negative) Ur Leukocyte Esterase (Negative) Urine RBC (0-2) /HPF Urine WBC (0-5) /HPF Ur Squamous Epith Cells (0-2) /HPF Urine Bacteria (None Seen) Hyaline Casts (0-2) /LPF Urine Osmolality (373-1093) mosm/kg Ur Random Sodium 41.0 mmol/L COVID-19 (JENNY) (Negative) COVID-19 Clin Com Influenza Type A (EMILY) (Negative) Influenza Type B (EMILY) (Negative) Influenza A & B Note <Ahmet Bernstein MD - Last Filed: 08/04/22 18:15> Independent Interpretation I performed an independent interpretation of an: EKG <Shannan Brown MD - Last Filed: 08/04/22 16:23> Interpretation: Normal sinus rhythm, HR-86, no STEMI, AL/QRS/QTC is within normal limits. <Shannan Brown MD - Last Filed: 08/04/22 16:23> Radiology Impression Radiologist Impression: My interpretation is in agreement with radiology's impression of the imaging studies. <Shannan Brown MD - Last Filed: 08/04/22 16:23> My interpretation is in agreement with radiology's impression of the imaging studies. CT head/brain wo IV con IMPRESSION: No acute intracranial abnormality. Background changes of chronic microangiopathy. Dictated By:ASHISH ULLOA MD <Ahmet Bernstein MD - Last Filed: 08/04/22 18:15> Independent Historian Clinical information obtained from an independent historian. History obtained from or confirmed by: Other (Daughter, there was an coating technician at [employer]) <Ahmet Bernstein MD - Last Filed: 08/04/22 18:15> External Record Review External record reviewed: Outpatient record and Prior outpatient labs <Shannan Brown MD - Last Filed: 08/04/22 16:23> Discharge Plan Discharge Patient Disposition: Admitted As Inpatient <DRISS Solis - Last Filed: 08/04/22 13:59>
[2022-08-04 14:22] LABS: MANUAL DIFF FLAG NO
[2022-08-04 14:28] LABS: Basophils Percent Auto 0.2 % (0-2); Eosinophils Percent Auto 0.4 % (0-4); Hematocrit 38.8 % (37.0-47.0); Hemoglobin 14.1 g/dl (12.0-16.0); Imm Gran Abs Auto 0.03 X10*3/uL (0.00-0.03); Imm Gran Pct Auto 0.4 % (0.0-0.4); Lymphocytes Absolute Auto 1.3 X10*3/uL (1.2-4.9); Lymphocytes Percent Auto 16.7 % (20-40); Mean Corpuscular HGB Conc 36.3 g/dl (31.0-35.0); Mean Corpuscular Hemoglobin 31.5 pg (27.0-33.0); Mean Corpuscular Volume 86.8 fL (80.0-98.0); Mean Platelet Volume 8.8 fL (9.4-12.3); Monocytes Absolute Auto 0.5 X10*3/uL (0.1-1.2); Monocytes Percent Auto 5.6 % (2-11); Neutrophils Absolute Auto 6.2 x10*3/uL (2.0-8.3); Neutrophils Percent Auto 76.7 % (45-73); Platelet Count 314 X10*3/uL (160-400); Red Blood Count 4.47 X10*6/uL (4.20-5.50); Red Cell Distribution Width 11.7 % (11.0-16.0)
[2022-08-04 14:35] LABS: Prothrombin Time 11.1 SEC (10.0-13.1)
[2022-08-04 14:40] LABS: Alanine Aminotransferase 20 U/L (0-31); Albumin Level 4.6 g/dL (3.5-5.0); Alkaline Phosphatase 72 U/L (39-117); Anion Gap 15 (12-20); Aspartate Amino Transferase 24 U/L (5-31); Bilirubin Direct 0.2 mg/dL (0.0-0.5); Bilirubin Total 0.7 mg/dL (0.0-1.0); Blood Urea Nitrogen 14 mg/dL (9-16); COVID-19 Test Negative (Negative); Calcium 9.3 mg/dL (8.4-10.2); Carbon Dioxide 26 mmol/L (22-29); Chloride 88 mmol/L (96-108); Creatinine Clr Calc Pharmacy 62.5; Estimated Glomerular Filt Rate > 60; Glucose Random 100 mg/dL (60-115); IDNOW Serial# 9DB6401D; IDNOW Serial# BCCEAD1C; Influenza A Negative (Negative); Influenza B2 Negative (Negative); Magnesium 1.9 mg/dL (1.6-2.6); Potassium 3.7 mmol/L (3.3-5.1); Sodium 125 mmol/L (135-145); Total Protein 7.3 g/dL (6.5-8.0)
[2022-08-04 14:48] LABS: Troponin-I High Sensitivity < 2.7 ng/L (<3.5-17.0)
[2022-08-04 16:12] LABS: Appearance Urine Clear; Color Urine Yellow; Glucose Urine UA Negative (Negative); Leukocyte Esterase Urine Negative (Negative); Nitrite Urine Negative (Negative); UMIC TRIGGER UACC YES; Urine Blood Negative (Negative); Urine Ketones Negative (Negative); Urine Protein 30 (1+) mg/dL (Neg-Trace)
[2022-08-04 16:14] LABS: Bacteria Urine None Seen (None Seen); Hyaline Casts Urine 0-2 /LPF (0-2); Squamous Epithelial Cell Urine 0-2 /HPF (0-2); WBC Urine 0-5 /HPF (0-5)
--- NOTE | 2022-08-04 16:18 | PC.NURSE ---
pt a+o x4, denies pain. she reported that she woke up last night drenched in sweat, enough that she had to change her pjs. she said that today she thinks she passed out but not sure . she felt weak, light-headed, dizzy. denies falling.
[2022-08-04 17:06] LABS: Osmolality, Serum 264 mosm/kg (281-305)
[2022-08-04 17:07] LABS: Osmolality Urine 298 mosm/kg (373-1093)
[2022-08-04 17:21] LABS: C Reactive Protein < 0.10 mg/dL (< or = 0.50)
[2022-08-04 17:52] LABS: Erythrocyte Sedimentation Rate 13 MM/HR (0-20)
--- NOTE | 2022-08-04 18:26 | PHA.MEDREC ---
Pharmacy Consult ? Medication Reconciliation Pharmacy has completed the medication reconciliation. Used list given by patient
--- NOTE | 2022-08-04 18:48 | P.HPHOSP_ITS ---
History of Present Illness Date of Service: 08/04/22 Attending physician on admission: Yennifer Junior Chief Complaint: syncope 67-year-old female with history of hypertension, hyperlipidemia, [id number] type 2 diabetes, history breast cancer, osteoarthritis, psoriasis presented to the ED following a syncopal episode earlier this morning which lasted for several minutes and was witnessed by her 13-year-old grandson. She states last night she felt somewhat foggy with gait imbalance it is and her daughter felt her speech was garbled. This morning, she had recurrence of symptoms and felt shaky. States with sitting at the kitchen table in began sweating profusely and saw specks of light. She remembers her head falling back but then does not recall anything further as she syncopized. Did not fall or hit her head. Per her grandson, this lasted for about 5-10 seconds. Upon waking, she was somewhat disoriented but has not had any recurrence of symptoms. Denies any recent change in medication except that she has been taking Sudafed, Delsym for sinus pressure which states has improved over the last week. She does have an occipital headache now. Has noted increased stress at work. No history of CVA or seizures. Glucose this morning was 119. Denies any fevers, chills, sore throat, abdominal pain, nausea, vomiting, urinary symptoms, diarrhea, constipation, palpitation, shortness of breath, or chest pain. On arrival, patient initially hypertensive at 185/109 though this did improve without therapeutic intervention. Vitals otherwise within normal limits. Orthostatic vital signs were negative. Hematology studies unremarkable, no anemia, no leukocytosis. Renal function normal. Sodium 125, potassium 3.7, chloride 88. Magnesium normal. Urine osmolality 264. Urine osmolality 298, urine sodium 41. Urinalysis otherwise unremarkable. Negative for COVID-19, influenza. CXR negative for any acute pulmonary findings. Head CT negative for any acute intracranial abnormality with chronic changes consistent with microangiopathy. Review of Systems Review of Systems: General: No fevers, malaise, unintentional weight loss. + diaphoresis HEENT: No blurred vision, diplopia. No sore throat, nasal congestion, rhinorrhea, sinus pain, ear pain Cardiovascular: No chest pain, palpitations, or leg edema Respiratory: No shortness of breath, wheezing, cough GI: No abdominal pain, nausea, vomiting, diarrhea, constipation, melena, hematochezia : No dysuria, hematuria, increased urinary frequency, decreased urinary output MSK: No myalgia, back pain Neuro: No headaches, weakness, paresthesias. + syncope Skin: No rashes or lesions [facility] Medical History (Updated 08/04/22 @ 19:38 by DRISS Moncada) History of breast cancer Hypercholesterolemia Hypertension Osteoarthritis SIADH (syndrome of inappropriate ADH production) Type 2 diabetes mellitus Family History (Updated 08/04/22 @ 19:39 by DRSIS Moncada) Father CAD (coronary artery disease) Brother Stroke Surgical History (Updated 08/04/22 @ 19:38 by DRISS Moncada) S/P right mastectomy Social History Advance Directives: No Advance Directives Information Provided: Yes Meds Allergies Allergy/AdvReac Type Severity Reaction Status Date / Time budesonide Allergy Unknown Verified 02/28/19 00:00 ciprofloxacin [Cipro] Allergy Unknown Verified 02/28/19 00:00 desonide Allergy Unknown Verified 02/28/19 00:00 flaxseed Allergy Unknown Verified 02/28/19 00:00 fludrocortisone Allergy Unknown Verified 02/28/19 00:00 halcinonide Allergy Unknown Verified 02/28/19 00:00 hydrocortisone Allergy Unknown Verified 02/28/19 00:00 prednisolone Allergy Unknown Verified 02/28/19 00:00 triamcinolone Allergy Unknown Verified 02/28/19 00:00 wheat [WHEAT] Allergy Unknown ABDOMINAL Unverified 12/28/19 16:25 DISTENTION Benadryl Allergy Unknown Uncoded 02/28/19 00:00 dust mites Allergy Unknown Uncoded 02/28/19 00:00 From BENADRYL Allergy Unknown HIVES Uncoded 12/28/19 16:25 latex Allergy Unknown Uncoded 02/28/19 00:00 mold Allergy Unknown Uncoded 02/28/19 00:00 numerous meds Allergy Unknown Uncoded 02/28/19 00:00 soy Allergy Unknown Uncoded 02/28/19 00:00 Active Medications: Current Medications Pharmacy Consult (Consult Rx Perform Med Rec) 1 each MISCELLANE ONCE PRN PRN Reason: Consult order Home Medications Medication Instructions Recorded Confirmed Last Taken Type aspirin 81 mg tablet,delayed 81 mg PO DAILY 08/04/22 08/04/22 08/04/22 History release atorvastatin 10 mg tablet 10 mg PO BEDTIME 08/04/22 08/04/22 08/03/22 History betamethasone dipropionate 0.05 % 1 appl topical BID 08/04/22 08/04/22 Unknown History topical ointment calcium carbonate 500 mg-vitamin 1 tab PO DAILY 08/04/22 08/04/22 08/04/22 History D3 10 mcg (400 unit) tablet (Calcium 500 + D) lifitegrast 5 % eye drops in a 1 drp ophthalmic (eye) BID 08/04/22 08/04/22 08/04/22 History dropperette (Xiidra) losartan 100 1 tab PO DAILY 08/04/22 08/04/22 08/04/22 History mg-hydrochlorothiazide 25 mg tablet metformin 500 mg tablet 500 mg PO BEDTIME 08/04/22 08/04/22 08/03/22 History Physical Exam Vital Signs and Narrative: Vital Signs: Last Vital Signs Temp 98.0 F 08/04/22 13:51 Pulse 83 08/04/22 16:05 Resp 17 08/04/22 13:51 BP 156/99 H 08/04/22 16:05 Pulse Ox 96 08/04/22 15:55 O2 Del Method Room Air 08/04/22 15:55 BMI result Body Mass Index 21.2 Constitutional - Awake and Alert, No apparent distress Eyes - PERRLA, EOMI Cardiovascular - S1S2, RRR, No edema Respiratory - Normal lung expansion, Normal respiratory effort, No respiratory distress, CTA bilaterally Gastrointestinal - NT / ND; +BS; No rebound or guarding Extremities - no calf tenderness bilaterally, no swelling Skin - Warm/Dry Neurological - Alert & oriented x3, CN II-XII in tact, 5/5 strength BUE and BLE, visual [place] in tact Psychological - Appropriate affect Results Labs 08/04/22 14:17 08/04/22 14:17 Labs: Laboratory Results - last 24 hr 08/04/22 08/04/22 08/04/22 14:17 14:17 14:17 MCV 86.8 MCH 31.5 MCHC 36.3 H RDW 11.7 Plt Count 314 MPV 8.8 L Immature Gran % (Auto) 0.4 Neut % (Auto) 76.7 H Lymph % (Auto) 16.7 L [place] % (Auto) 5.6 Eos % (Auto) 0.4 Baso % (Auto) 0.2 Lymph # (Auto) 1.3 [place] # (Auto) 0.5 Eos # (Auto) 0.0 Baso # (Auto) 0.0 Abs Immat Gran (auto) 0.03 Absolute Neuts (auto) 6.2 Absolute Nucleated RBC 0.000 Nucleated RBC % (auto) 0.0 ESR PT INR Anion Gap 15 Estim Creat Clear Calc 62.5 Estimated GFR > 60 Random Glucose 100 Osmolality Calcium 9.3 Magnesium 1.9 Total Bilirubin 0.7 Direct Bilirubin 0.2 AST 24 ALT 20 Alkaline Phosphatase 72 Troponin I High Sens < 2.7 C-Reactive Protein < 0.10 Total Protein 7.3 Albumin 4.6 Urine Color Urine Appearance Urine pH Ur Specific [place] Urine Protein Urine Glucose (UA) Urine Ketones Urine Blood Urine Nitrite Ur Leukocyte Esterase Urine RBC Urine WBC Ur Squamous Epith Cells Urine Bacteria Hyaline Casts Urine Osmolality Ur Random Sodium COVID-19 (JENNY) COVID-19 Clin Com Influenza Type A (EMILY) Influenza Type B (EMILY) Influenza A & B Note 08/04/22 08/04/22 08/04/22 14:17 14:17 14:17 MCV MCH MCHC RDW Plt Count MPV Immature Gran % (Auto) Neut % (Auto) Lymph % (Auto) [place] % (Auto) Eos % (Auto) Baso % (Auto) Lymph # (Auto) [place] # (Auto) Eos # (Auto) Baso # (Auto) Abs Immat Gran (auto) Absolute Neuts (auto) Absolute Nucleated RBC Nucleated RBC % (auto) ESR PT 11.1 INR 1.0 Anion Gap Estim Creat Clear Calc Estimated GFR Random Glucose Osmolality Calcium Magnesium Total Bilirubin Direct Bilirubin AST ALT Alkaline Phosphatase Troponin I High Sens C-Reactive Protein Total Protein Albumin Urine Color Urine Appearance Urine pH Ur Specific [place] Urine Protein Urine Glucose (UA) Urine Ketones Urine Blood Urine Nitrite Ur Leukocyte Esterase Urine RBC Urine WBC Ur Squamous Epith Cells Urine Bacteria Hyaline Casts Urine Osmolality Ur Random Sodium COVID-19 (JENNY) Negative COVID-19 Clin Com See Note Influenza Type A (EMILY) Negative Influenza Type B (EMILY) Negative Influenza A & B Note See Note 08/04/22 08/04/22 08/04/22 14:17 14:17 15:51 MCV MCH MCHC RDW Plt Count MPV Immature Gran % (Auto) Neut % (Auto) Lymph % (Auto) [place] % (Auto) Eos % (Auto) Baso % (Auto) Lymph # (Auto) [place] # (Auto) Eos # (Auto) Baso # (Auto) Abs Immat Gran (auto) Absolute Neuts (auto) Absolute Nucleated RBC Nucleated RBC % (auto) ESR 13 PT INR Anion Gap Estim Creat Clear Calc Estimated GFR Random Glucose Osmolality 264 L Calcium Magnesium Total Bilirubin Direct Bilirubin AST ALT Alkaline Phosphatase Troponin I High Sens C-Reactive Protein Total Protein Albumin Urine Color Yellow Urine Appearance Clear Urine pH 7.0 Ur Specific [place] 1.010 Urine Protein 30 (1+) H Urine Glucose (UA) Negative Urine Ketones Negative Urine Blood Negative Urine Nitrite Negative Ur Leukocyte Esterase Negative Urine RBC 3-5 H Urine WBC 0-5 Ur Squamous Epith Cells 0-2 Urine Bacteria None Seen Hyaline Casts 0-2 Urine Osmolality Ur Random Sodium COVID-19 (JENNY) COVID-19 Clin Com Influenza Type A (EMILY) Influenza Type B (EMILY) Influenza A & B Note 08/04/22 08/04/22 15:51 15:51 MCV MCH MCHC RDW Plt Count MPV Immature Gran % (Auto) Neut % (Auto) Lymph % (Auto) [place] % (Auto) Eos % (Auto) Baso % (Auto) Lymph # (Auto) [place] # (Auto) Eos # (Auto) Baso # (Auto) Abs Immat Gran (auto) Absolute Neuts (auto) Absolute Nucleated RBC Nucleated RBC % (auto) ESR PT INR Anion Gap Estim Creat Clear Calc Estimated GFR Random Glucose Osmolality Calcium Magnesium Total Bilirubin Direct Bilirubin AST ALT Alkaline Phosphatase Troponin I High Sens C-Reactive Protein Total Protein Albumin Urine Color Urine Appearance Urine pH Ur Specific [place] Urine Protein Urine Glucose (UA) Urine Ketones Urine Blood Urine Nitrite Ur Leukocyte Esterase Urine RBC Urine WBC Ur Squamous Epith Cells Urine Bacteria Hyaline Casts Urine Osmolality 298 L Ur Random Sodium 41.0 COVID-19 (JENNY) COVID-19 Clin Com Influenza Type A (EMILY) Influenza Type B (EMILY) Influenza A & B Note Imaging Radiologist's Impressions: Impressions Head CT 08/04/22 14:27 IMPRESSION: No acute intracranial abnormality. Background changes of chronic microangiopathy. Chest X-Ray 08/04/22 14:28 IMPRESSION: No acute pulmonary findings. Assessment and Plan (1) Chronic hyponatremia: Status: Acute (2) Syncope: Status: Acute Plan 67-year-old female with history of hypertension, hyperlipidemia, [id number]-wckzndpya type 2 diabetes, history breast cancer, osteoarthritis, psoriasis #Syncope -Likely vasovagal in nature -Orthostatics negative -Head CT negative. 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 Na 125 -Hold HCTZ, consider alternative if BP remains elevated -Fluid restrictions 1L # hypertension-reasonably controlled at this time -continue losartan 100 mg, hold hydrochlorothiazide as above -consider adding amlodipine if patient remains hypertensive (appears anxious at this time) # controlled type 2 diabetes-without hyperglycemia -POC glucose -Humalog on sliding scale -diabetic diet -hold metformin # history right-sided invasive ductal carcinoma -treated with right mastectomy in 2003 -follows annually with [facility] outpatient DVT prophylaxis-Lovenox Full code Time Spent With Patient Time: Total time managing care of this patient today ____ minutes. Quality Stroke Does the patient have a stroke diagnosis?: No VTE Prior VTE?: No VTE Risk Level:: Medical - moderate - high VTE Device Contraindication: Treatment Not Indicated VTE Drug Contraindication: N/A - Med Ordered
[2022-08-04 20:09] LABS: TSH reflex Free T4 1.93 uIU/mL (0.32-4.0)
[2022-08-04] MEDS: Enoxaparin Sodium 40 MG/0.4 ML SYRINGE SUBCUT (20:19)
[2022-08-04 20:52] LABS: Troponin-I High Sensitivity < 2.7 ng/L (<3.5-17.0)
[2022-08-04 21:39] LABS: Glucose, Whole Blood 103 mg/dL (60-115)
[2022-08-04] MEDS: Atorvastatin Calcium 10 MG TABLET PO (23:51)
[2022-08-04] MEDS: Acetaminophen 325 MG TABLET 650 MG PO (23:53)
[2022-08-05 07:23] LABS: Glucose, Whole Blood 96 mg/dL (60-115)
[2022-08-05 07:29] VITALS: BP 145/79; PULSE 63; RESP 18; TEMP 35.8; O2SAT 99
[2022-08-05] MEDS: Calcium + Vitamin D 250 MG TABLET 500 MG PO (07:47)
[2022-08-05] MEDS: Losartan Potassium 50 MG TABLET 100 MG PO (07:48)
[2022-08-05] MEDS: Aspirin Enteric Coated 81 MG TABLET.DR PO (07:49)
[2022-08-05] MEDS: 0.9 % Sodium Chloride Flush 3 ML SYRINGE IVFLUSH (07:50)
[2022-08-05 08:03] LABS: MANUAL DIFF FLAG NO
[2022-08-05 08:12] LABS: Basophils Percent Auto 0.8 % (0-2); Eosinophils Absolute Auto 0.1 X10*3/uL (0.0-0.4); Eosinophils Percent Auto 2.3 % (0-4); Hematocrit 38.6 % (37.0-47.0); Hemoglobin 13.9 g/dl (12.0-16.0); Imm Gran Abs Auto 0.01 X10*3/uL (0.00-0.03); Imm Gran Pct Auto 0.2 % (0.0-0.4); Lymphocytes Absolute Auto 1.7 X10*3/uL (1.2-4.9); Lymphocytes Percent Auto 32.1 % (20-40); Mean Corpuscular Hemoglobin 31.5 pg (27.0-33.0); Mean Corpuscular Volume 87.5 fL (80.0-98.0); Mean Platelet Volume 9.3 fL (9.4-12.3); Monocytes Absolute Auto 0.5 X10*3/uL (0.1-1.2); Monocytes Percent Auto 9.6 % (2-11); Neutrophils Absolute Auto 2.9 x10*3/uL (2.0-8.3); Platelet Count 299 X10*3/uL (160-400); Red Blood Count 4.41 X10*6/uL (4.20-5.50); Red Cell Distribution Width 11.8 % (11.0-16.0); White Blood Count 5.2 X10*3/uL (4.8-10.8)
--- NOTE | 2022-08-05 08:18 | MHC.CM.PN ---
CM met with Patient at bedside and addressed AREVALO with her, providing Patient with the original and placing a copy on the chart. Patient lives in a house with her Daughter and her Daughter's Family and she is functionally independent and working. Home/self care is the goal and CM has initiated and will follow for dc planning. Patient has received Pfizer/Covid vax x3 and her PCP is Dr. Alecia Hawk.
[2022-08-05 08:25] LABS: Anion Gap 12 (12-20); Blood Urea Nitrogen 11 mg/dL (9-16); Calcium 8.9 mg/dL (8.4-10.2); Carbon Dioxide 29 mmol/L (22-29); Chloride 97 mmol/L (96-108); Creatinine Clr Calc Pharmacy 65.2; Estimated Glomerular Filt Rate > 60; Glucose Random 89 mg/dL (60-115); Potassium 3.9 mmol/L (3.3-5.1); Sodium 134 mmol/L (135-145)
[2022-08-05] MEDS: LORazepam 1 MG TABLET PO (08:41)
--- NOTE | 2022-08-05 08:48 | MHC.CM.PN ---
CM has assisted Patient with the completion of a HCP.
[2022-08-05] MEDS: Acetaminophen 325 MG TABLET 650 MG PO (10:24)
[2022-08-05 11:37] LABS: Glucose, Whole Blood 91 mg/dL (60-115)
[2022-08-05 11:54] VITALS: BP 112/58; PULSE 63; RESP 18; TEMP 36.2; O2SAT 97
--- NOTE | 2022-08-05 14:18 | P.DS_ITS ---
DS: Providers Provider Date of Service: 08/05/22 Date of admission: 08/04/22 19:19 Primary care physician: Alecia Hawk MD DS: Diagnosis Discharge Diagnosis (1) Chronic hyponatremia: Status: Acute (2) Syncope: Status: Acute DS: Summary Hospital Course Hospital Course: from initial hpi: 67-year-old female with history of hypertension, hyperlipidemia, [id number] type 2 diabetes, history breast cancer, osteoarthritis, psoriasis presented to the ED following a syncopal episode earlier this morning which lasted for several minutes and was witnessed by her 13-year-old grandson.? She states last night she felt somewhat foggy with gait imbalance it is and her daughter felt her speech was garbled.? This morning, she had recurrence of symptoms and felt shaky.? States with sitting at the kitchen table in began sweating profusely and saw specks of light.? She remembers her head falling back but then does not recall anything further as she syncopized.? Did not fall or hit her head.? Per her grandson, this lasted for about 5-10 seconds.? Upon waking, she was somewhat disoriented but has not had any recurrence of symptoms.? Denies any recent change in medication except that she has been taking Sudafed, Delsym for sinus pressure which states has improved over the last week.? She does have an occipital headache now.? Has noted increased stress at work.? No history of CVA or seizures.? Glucose this morning was 119.? Denies any fevers, chills, sore throat, abdominal pain, nausea, vomiting, urinary symptoms, diarrhea, constipation, palpitation, shortness of breath, or chest pain. On arrival, patient initially hypertensive at 185/109 though this did improve without therapeutic intervention.? Vitals otherwise within normal limits.? Orthostatic vital signs were negative.? Hematology studies unremarkable, no anemia, no leukocytosis.? Renal function normal.? Sodium 125, potassium 3.7, chloride 88.? Magnesium normal.? Urine osmolality 264.? Urine osmolality 298, urine sodium 41.? Urinalysis otherwise unremarkable.? Negative for COVID-19, influenza.? CXR negative for any acute pulmonary findings.? Head CT negative for any acute intracranial abnormality with chronic changes consistent with microangiopathy. hospital course: Patient was admitted for syncope. Likely combination of vasovagal, hyponatremia, antihistamine use. Orthostatics were negative. MRi of the brain was unremarkable. Hyponatremia resolved with holding hydrochlorothiazide and fluid restricting. No events on telemetry. For her hypertension her hydrochlorothiazide has been held and she will continue on losartan. For diabetes her metformin was held and she was given sliding scale insulin. She will restart metformin on discharge. For history of right-sided invasive ductal carcinoma status post right mastectomy she follows with [facility] as outpatient. Patient is feeling better will be discharged home. Time Spent with Patient Time attestation: Total time managing care of this patient today ____ minutes. Discharge coordination time: Greater than 30 minutes Quality: Safe Use of Opioids Does Pt have an Active Cancer Diagnosis on the Problem List?: No Quality: Stroke Does the patient have a stroke diagnosis?: No Physical Exam Vital Signs: Vital Signs: Last Vital Signs Temp 97.1 F 08/05/22 11:54 Pulse 63 08/05/22 11:54 Resp 18 08/05/22 11:54 BP 112/58 L 08/05/22 11:54 Pulse Ox 97 08/05/22 11:54 O2 Del Method Room Air 08/05/22 11:54 O2 Flow Rate 40 08/04/22 23:49 FiO2 90 08/04/22 23:49 BMI result Body Mass Index 21.2 General: AO X 3, no acute distress Resp: CTA bilateral, no accessory muscles used CVS: S1,S2,RRR GI: soft, non tender, non distended Neuro: motor grossly intact, alert Psych: appropriate affect, appropriate insight DS: Data Data Completed and Pending Labs on day of discharge: Laboratory Results - last 24 hr 08/04/22 08/04/22 08/04/22 14:17 14:17 14:17 WBC 8.0 RBC 4.47 Hgb 14.1 Hct 38.8 MCV 86.8 MCH 31.5 MCHC 36.3 H RDW 11.7 Plt Count 314 MPV 8.8 L Immature Gran % (Auto) 0.4 Neut % (Auto) 76.7 H Lymph % (Auto) 16.7 L [place] % (Auto) 5.6 Eos % (Auto) 0.4 Baso % (Auto) 0.2 Lymph # (Auto) 1.3 [place] # (Auto) 0.5 Eos # (Auto) 0.0 Baso # (Auto) 0.0 Abs Immat Gran (auto) 0.03 Absolute Neuts (auto) 6.2 Absolute Nucleated RBC 0.000 Nucleated RBC % (auto) 0.0 ESR PT INR Sodium 125 L Potassium 3.7 Chloride 88 L Carbon Dioxide 26 Anion Gap 15 BUN 14 Creatinine 0.71 Estim Creat Clear Calc 62.5 Estimated GFR > 60 POC Glucose Random Glucose 100 Osmolality Calcium 9.3 Magnesium 1.9 Total Bilirubin 0.7 Direct Bilirubin 0.2 AST 24 ALT 20 Alkaline Phosphatase 72 Troponin I High Sens < 2.7 C-Reactive Protein < 0.10 Total Protein 7.3 Albumin 4.6 TSH 1.93 Urine Color Urine Appearance Urine pH Ur Specific [place] Urine Protein Urine Glucose (UA) Urine Ketones Urine Blood Urine Nitrite Ur Leukocyte Esterase Urine RBC Urine WBC Ur Squamous Epith Cells Urine Bacteria Hyaline Casts Urine Osmolality Ur Random Sodium COVID-19 (JENNY) COVID-19 Clin Com Influenza Type A (EMILY) Influenza Type B (EMILY) Influenza A & B Note 08/04/22 08/04/22 08/04/22 14:17 14:17 14:17 WBC RBC Hgb Hct MCV MCH MCHC RDW Plt Count MPV Immature Gran % (Auto) Neut % (Auto) Lymph % (Auto) [place] % (Auto) Eos % (Auto) Baso % (Auto) Lymph # (Auto) [place] # (Auto) Eos # (Auto) Baso # (Auto) Abs Immat Gran (auto) Absolute Neuts (auto) Absolute Nucleated RBC Nucleated RBC % (auto) ESR PT 11.1 INR 1.0 Sodium Potassium Chloride Carbon Dioxide Anion Gap BUN Creatinine Estim Creat Clear Calc Estimated GFR POC Glucose Random Glucose Osmolality Calcium Magnesium Total Bilirubin Direct Bilirubin AST ALT Alkaline Phosphatase Troponin I High Sens C-Reactive Protein Total Protein Albumin TSH Urine Color Urine Appearance Urine pH Ur Specific [place] Urine Protein Urine Glucose (UA) Urine Ketones Urine Blood Urine Nitrite Ur Leukocyte Esterase Urine RBC Urine WBC Ur Squamous Epith Cells Urine Bacteria Hyaline Casts Urine Osmolality Ur Random Sodium COVID-19 (JENNY) Negative COVID-19 Clin Com See Note Influenza Type A (EMILY) Negative Influenza Type B (EMILY) Negative Influenza A & B Note See Note 08/04/22 08/04/22 08/04/22 14:17 14:17 15:51 WBC RBC Hgb Hct MCV MCH MCHC RDW Plt Count MPV Immature Gran % (Auto) Neut % (Auto) Lymph % (Auto) [place] % (Auto) Eos % (Auto) Baso % (Auto) Lymph # (Auto) [place] # (Auto) Eos # (Auto) Baso # (Auto) Abs Immat Gran (auto) Absolute Neuts (auto) Absolute Nucleated RBC Nucleated RBC % (auto) ESR 13 PT INR Sodium Potassium Chloride Carbon Dioxide Anion Gap BUN Creatinine Estim Creat Clear Calc Estimated GFR POC Glucose Random Glucose Osmolality 264 L Calcium Magnesium Total Bilirubin Direct Bilirubin AST ALT Alkaline Phosphatase Troponin I High Sens C-Reactive Protein Total Protein Albumin TSH Urine Color Yellow Urine Appearance Clear Urine pH 7.0 Ur Specific [place] 1.010 Urine Protein 30 (1+) H Urine Glucose (UA) Negative Urine Ketones Negative Urine Blood Negative Urine Nitrite Negative Ur Leukocyte Esterase Negative Urine RBC 3-5 H Urine WBC 0-5 Ur Squamous Epith Cells 0-2 Urine Bacteria None Seen Hyaline Casts 0-2 Urine Osmolality Ur Random Sodium COVID-19 (JENNY) COVID-19 Clin Com Influenza Type A (EMILY) Influenza Type B (EMILY) Influenza A & B Note 08/04/22 08/04/22 08/04/22 15:51 15:51 20:18 WBC RBC Hgb Hct MCV MCH MCHC RDW Plt Count MPV Immature Gran % (Auto) Neut % (Auto) Lymph % (Auto) [place] % (Auto) Eos % (Auto) Baso % (Auto) Lymph # (Auto) [place] # (Auto) Eos # (Auto) Baso # (Auto) Abs Immat Gran (auto) Absolute Neuts (auto) Absolute Nucleated RBC Nucleated RBC % (auto) ESR PT INR Sodium Potassium Chloride Carbon Dioxide Anion Gap BUN Creatinine Estim Creat Clear Calc Estimated GFR POC Glucose Random Glucose Osmolality Calcium Magnesium Total Bilirubin Direct Bilirubin AST ALT Alkaline Phosphatase Troponin I High Sens < 2.7 C-Reactive Protein Total Protein Albumin TSH Urine Color Urine Appearance Urine pH Ur Specific [place] Urine Protein Urine Glucose (UA) Urine Ketones Urine Blood Urine Nitrite Ur Leukocyte Esterase Urine RBC Urine WBC Ur Squamous Epith Cells Urine Bacteria Hyaline Casts Urine Osmolality 298 L Ur Random Sodium 41.0 COVID-19 (JENNY) COVID-19 Clin Com Influenza Type A (EMILY) Influenza Type B (EMILY) Influenza A & B Note 08/04/22 08/05/22 08/05/22 21:35 07:12 07:12 WBC 5.2 RBC 4.41 Hgb 13.9 Hct 38.6 MCV 87.5 MCH 31.5 MCHC 36.0 H RDW 11.8 Plt Count 299 MPV 9.3 L Immature Gran % (Auto) 0.2 Neut % (Auto) 55.0 Lymph % (Auto) 32.1 [place] % (Auto) 9.6 Eos % (Auto) 2.3 Baso % (Auto) 0.8 Lymph # (Auto) 1.7 [place] # (Auto) 0.5 Eos # (Auto) 0.1 Baso # (Auto) 0.0 Abs Immat Gran (auto) 0.01 Absolute Neuts (auto) 2.9 Absolute Nucleated RBC 0.000 Nucleated RBC % (auto) 0.0 ESR PT INR Sodium 134 L Potassium 3.9 Chloride 97 Carbon Dioxide 29 Anion Gap 12 BUN 11 Creatinine 0.68 Estim Creat Clear Calc 65.2 Estimated GFR > 60 POC Glucose 103 Random Glucose 89 Osmolality Calcium 8.9 Magnesium Total Bilirubin Direct Bilirubin AST ALT Alkaline Phosphatase Troponin I High Sens C-Reactive Protein Total Protein Albumin TSH Urine Color Urine Appearance Urine pH Ur Specific [place] Urine Protein Urine Glucose (UA) Urine Ketones Urine Blood Urine Nitrite Ur Leukocyte Esterase Urine RBC Urine WBC Ur Squamous Epith Cells Urine Bacteria Hyaline Casts Urine Osmolality Ur Random Sodium COVID-19 (JENNY) COVID-19 Clin Com Influenza Type A (EMILY) Influenza Type B (EMILY) Influenza A & B Note 08/05/22 08/05/22 07:12 11:25 WBC RBC Hgb Hct MCV MCH MCHC RDW Plt Count MPV Immature Gran % (Auto) Neut % (Auto) Lymph % (Auto) [place] % (Auto) Eos % (Auto) Baso % (Auto) Lymph # (Auto) [place] # (Auto) Eos # (Auto) Baso # (Auto) Abs Immat Gran (auto) Absolute Neuts (auto) Absolute Nucleated RBC Nucleated RBC % (auto) ESR PT INR Sodium Potassium Chloride Carbon Dioxide Anion Gap BUN Creatinine Estim Creat Clear Calc Estimated GFR POC Glucose 96 91 Random Glucose Osmolality Calcium Magnesium Total Bilirubin Direct Bilirubin AST ALT Alkaline Phosphatase Troponin I High Sens C-Reactive Protein Total Protein Albumin TSH Urine Color Urine Appearance Urine pH Ur Specific [place] Urine Protein Urine Glucose (UA) Urine Ketones Urine Blood Urine Nitrite Ur Leukocyte Esterase Urine RBC Urine WBC Ur Squamous Epith Cells Urine Bacteria Hyaline Casts Urine Osmolality Ur Random Sodium COVID-19 (JENNY) COVID-19 Clin Com Influenza Type A (EMILY) Influenza Type B (EMILY) Influenza A & B Note Discharge Plan Discharge Anticipated Discharge Date/Time: 08/05/22 14:13 Patient Disposition: Home, Self-Care Discharge Diagnosis: syncope, hyponatremia Referrals: Alecia Hawk MD [Primary Care Provider] - 1 Week Discharge Medications: New losartan 50 mg Tablet 100 mg PO DAILY Qty: 30 0RF Protocol: Hold for SBP< HOLD for SBP < : 90 Continued metformin 500 mg tablet 500 mg PO BEDTIME atorvastatin 10 mg tablet 10 mg PO BEDTIME Xiidra 5 % dropperette 1 drp ophthalmic (eye) BID aspirin 81 mg Tablet,Delayed Release (Dr/Ec) 81 mg PO DAILY betamethasone dipropionate 0.05 % ointment 1 appl topical BID calcium carbonate-vitamin D3 [Calcium 500 + D] 500 mg-10 mcg (400 unit) Tablet 1 tab PO DAILY Discontinued losartan-hydrochlorothiazide 100-25 mg tablet 1 tab PO DAILY Discharge Orders: Discharge Order (Routine); Ordered 08/05/22 Ordered By: Roderick Manuel Diet: Advance to usual diet Activity on Discharge: As tolerated Stand Alone Forms: Patient Portal Discharge page Care Plan Goals: recovery Health Concerns: syncope Plan of Treatment: holding hcz for low sodium, start losartan on its own. follow up cardio Assessment: see above
--- NOTE | 2022-08-05 14:48 | MHC.CM.PN ---
Patient has been medically cleared for dc to home today, self care.
[2022-08-05 14:59] VITALS: BP 117/73; PULSE 71; RESP 19; TEMP 36.3; O2SAT 97
== END 2022-08-05 16:45 | disposition home or self-care (01) ==
LOC: HO.ED 18:10 → HO.EDOVER 19:41 → HO.IMC 19:51
PROVIDERS: Physician Assistant; Student in an Organized Health Care Education/Training Program; Admitting Provider Physician Assistant; Emergency Provider Emergency Medicine Emergency Medical Services; PCP Internal Medicine; Visit Provider Internal Medicine
DX: E87.1 Hypo-osmolality and hyponatremia (principal); R55 Syncope and collapse; Z20.822 Contact with and (suspected) exposure to COVID-19; I10 Essential (primary) hypertension; E11.9 Type 2 diabetes mellitus without complications; E78.5 Hyperlipidemia, unspecified; Z79.899 Other long term (current) drug therapy
CPT/HCPCS: 36415; 70450; 70551; 71045; 80048; 80076; 81001; 82947; 83735; 83930; 83935; 84300; 84443; 84484; 85025; 85610; 85652; 86140; 87502; 87635; 93005; 96372; 99222; 99285; J1650

== ENCOUNTER 2022-08-18 11:20 | Outpatient (REF) | payer BC, SELFPAY ==
--- NOTE | ~2022-08-18 | US_ITS ---
EXAMINATION: US EXTRACRANIAL CAROTID DUPLEX, BILATERAL CLINICAL INFORMATION: Syncope COMPARISON: None available. TECHNIQUE: Real-time ultrasound and Doppler techniques (integrating B-mode 2-D vascular images, Doppler spectral analysis and color-flow Doppler imaging) were utilized to interrogate the extracranial carotid arteries, the vertebral arteries and proximal subclavian arteries bilaterally. The degree of stenosis is determined by criteria similar to NASCET. FINDINGS: Right Side: 1. There is no significant atherosclerotic plaque seen in the bifurcation/proximal ICA region. 2. The common carotid artery PSV proximally is 80 cm/s and distally 85 cm/s. 3. The proximal internal carotid artery velocities are 74 cm/s systolic and 23 cm/s diastolic. 4. The proximal external carotid artery PSV is 73 cm/s. 5. The vertebral artery shows antegrade flow. 6. The subclavian artery waveforms are normal. Left Side: 1. There is no significant atherosclerotic plaque seen in the bifurcation/proximal ICA region. 2. The common carotid artery PSV proximally is 120 cm/s and distally 88 cm/s. 3. The proximal internal carotid artery velocities are 80 cm/s systolic and 28 cm/s diastolic. 4. The proximal external carotid artery PSV is 63 cm/s. 5. The vertebral artery shows antegrade flow. 6. The subclavian artery waveforms are normal. Bilateral normal appearing cervical lymph nodes. US/US carotid duplex BI IMPRESSION: 1. RIGHT: Normal right internal carotid artery without atherosclerotic plaque or hemodynamically significant stenosis. 2. LEFT: Normal left internal carotid artery without atherosclerotic plaque or hemodynamically significant stenosis.
== END 2022-08-18 11:21 | disposition home or self-care (01) ==
LOC: HO.US 11:20
PROVIDERS: Visit Provider Internal Medicine Cardiovascular Disease
DX: R55 Syncope and collapse (principal)
CPT/HCPCS: 93880